=== PATIENT | male | born 1930 | race Caucasian/White ===

== ENCOUNTER → 2016-08-07 | Outpatient (CLI) | payer OTHER ==
[~2016-08-07] MED LIST: IOPAMIDOL (ISOVUE-300) 100 ML BTL IV ONE
--- NOTE | 2016-08-07 18:46 | CT ---
CT Scan of the Abdomen and Pelvis (With Contrast) Indication: Low pelvic pain. History of partial colectomy for obstruction. History of appendectomy. Comparison: March 2016 Technique: 85 mL of Isovue 300 were given intravenously by machine power injection. Oral contrast wa s administered. Multidetector helical CT imaging was performed from the diaphragm to the symphysis pu bis. Dose reduction techniques were utilized. Findings: Abdomen: The lung bases demonstrate minimal scarring. Large hiatal hernia is present with the majorit y of the stomach involved as seen previously. No focal liver lesion is identified. Patient is status post cholecystectomy. A few calcifications are seen in the body of the pancreas which are probably va sculature could be from prior chronic pancreatitis. Spleen is unremarkable. Both adrenal glands are n ormal in size and appearance. Both kidneys enhance normally without evidence for mass or hydronephros is. There is evidence of vascular disease in the abdominal aorta without evidence significant aneurys mal dilatation and with a stable appearance. No significant abdominal lymphadenopathy. Pelvis: Diverticulosis is seen in sigmoid colon. There is prominent stool in the colon. No evidence f or inflammatory change to indicate diverticulitis. No evidence for small bowel obstruction. No signif icant free fluid in the pelvis. Radiation seeds are seen in the prostate. No evidence for bladder alexia culus. Multilevel degenerative changes seen in the lumbar spine stable in appearance. Slight mild ant erior wedge compression deformities are seen of L2 and L4 vertebral bodies which are stable. Impression: 1. Diverticulosis without evidence for diverticulitis. Constipation. 2. Large hiatal hernia involving majority of the stomach stable in appearance. 3. Other chronic findings as above which are stable.
== END ==
LOC: FIMAGING 14:12
PROVIDERS: ATTEND Physician Assistant Medical
DX: K57.30 Diverticulosis of large intestine without perforation or abscess without bleeding (principal); K44.9 Diaphragmatic hernia without obstruction or gangrene; Z90.49 Acquired absence of other specified parts of digestive tract
CPT/HCPCS: 74177; Q9967

== ENCOUNTER → 2016-12-09 | Outpatient (CLI) | payer OTHER | LOC: FIMAGING 11:58 | PROVIDERS: ATTEND Internal Medicine Pulmonary Disease | DX: J44.9 Chronic obstructive pulmonary disease, unspecified (principal); K44.9 Diaphragmatic hernia without obstruction or gangrene ==

== ENCOUNTER 2017-01-27 12:03 | Observation (INO) | payer OTHER ==
--- NOTE | 2017-01-27 12:23 | CPEKG ---
Heart Rate: 96 RR Interval: 625 P-R Interval: 144 QRSD Interval: 84 QT Interval: 356 QTC Interval: 450 P [place]: 24 QRS [place]: 13 T Wave [place]: 55 EKG Severity - OTHERWISE NORMAL ECG - EKG Impression: SINUS RHYTHM EKG Impression: VENTRICULAR PREMATURE COMPLEX Electronically Signed By: Russ Tapia 27-Jan-2017 12:55:22
[2017-01-27 12:41] LABS: % IMMATURE GRANULYOCYTES 0.7 % (0.0-1.1); ABSOLUTE IMMATURE GRANULOCYTES 0.06 10^3/uL (0.00-0.10); ADD DIFF? NO; ADD MORPH? NO; ADD SCAN? NO; ATYPICAL LYMPHOCYTE FLAG 0 (0-99); FRAGMENT RBC FLAG 0 (0-99); HEMATOCRIT 51.9 % (40.0-51.0); LEFT SHIFT FLG 0 (0-99); LIPEMIA HEMOLYSIS FLAG 80 (0-99); MEAN CELL HEMOGLOBIN CONCENTR. 32.8 g/dL (32.4-36.7); MEAN CELL VOLUME 94.5 fL (81.5-99.8); PLATELET CLUMPS FLAG 0 (0-99); PLATELET COUNT 136 10^3/uL (150-400); RED BLOOD CELL COUNT 5.49 10^6/uL (4.40-6.38); RED CELL DISTRIBUTION WIDTH 14.4 % (11.5-15.2)
[2017-01-27] MEDS ORDERED: NS 1,000 ML IV ONE (12:50)
[2017-01-27 12:53] LABS: ANION GAP 13 mEq/L (8-16); CALCIUM 10.1 mg/dL (8.5-10.4); CARBON DIOXIDE 24 mEq/l (22-31); CHLORIDE 102 mEq/L (97-110); CREATININE 1.1 mg/dL (0.7-1.3); GLOMERULAR FILTRATION RATE > 60; GLUCOSE 81 mg/dL (70-100); POTASSIUM 4.2 mEq/L (3.5-5.2); SODIUM 139 mEq/L (134-144)
--- NOTE | 2017-01-27 12:54 | EDPHY ---
H & P Stated Complaint: exertional dyspnea/cp x 1 month has seen cardiology and configuration management advisor Time Seen by Provider: 01/27/17 12:40 HPI/ROS: CHIEF COMPLAINT: Dyspnea on exertion and presyncope HISTORY OF PRESENT ILLNESS: The patient is an 86-year-old man with a history of COPD and coronary artery disease with 2 stents who comes to the emergency department complaining of dyspnea on exertion. He has had the symptoms for the last 2 years but have worsened over the last 2 months. He states that he can hardly take a few steps up the stairs without becoming shortness of breath and having tightness in his upper chest. He is not diaphoretic. He is not nauseous. He followed up with his electronic warfare linguist Dr. Rodrigues who told him his tests were normal . He also followed up with his configuration management advisor Dr. Cristian Zimmerman who told him he did not find anything wrong. He feels great at rest. He has not had any swelling. Today he stood up from lying in the dental chair for an hour and felt lightheaded and presyncopal. He had to kneel down in the driveway. This concerned him enough to come to the emergency department. REVIEW OF SYSTEMS: Constitutional: denies: chills, fever, recent illness, recent injury EENTM: denies: blurred vision, double vision, nose congestion Respiratory: See HPI Cardiac: See HPI Gastrointestinal/Abdominal: denies: abdominal pain, diarrhea, nausea, vomiting, blood streaked stools Genitourinary: denies: dysuria, frequency, hematuria, pain Musculoskeletal: denies: joint pain, muscle pain Skin: denies: lesions, rash, jaundice, bruising Neurological: denies: headache, numbness, paresthesia, tingling, dizziness, weakness Hematologic/Lymphatic: denies: blood clots, easy bleeding, easy bruising Immunologic/allergic: denies: HIV/AIDS, transplant EXAM: GENERAL: Well-appearing, well-nourished and in no acute distress. HEAD: Atraumatic, normocephalic. EYES: Pupils equal round and reactive to light, extraocular movements intact, sclera anicteric, conjunctiva are normal. ENT: TMs normal, nares patent, oropharynx clear without exudates. Moist mucous membranes. NECK: Normal range of motion, supple without lymphadenopathy or JVD. LUNGS: Breath sounds clear to auscultation bilaterally and equal. No wheezes rales or rhonchi. HEART: Regular rate and rhythm without murmurs, rubs or gallops. ABDOMEN: Soft, nontender, normoactive bowel sounds. No guarding, no rebound. No masses appreciated. BACK: No CVA tenderness, no spinal tenderness, step-offs or deformities EXTREMITIES: Normal range of motion, no pitting or edema. No clubbing or cyanosis. NEUROLOGICAL: Cranial nerves II through XII grossly intact. Normal speech, normal gait. 5/5 strength, normal movement in all extremities, normal sensation PSYCH: Normal mood, normal affect. SKIN: Warm, dry, normal turgor, no visible rashes or lesions. Source: Patient Exam Limitations: No limitations - Personal History Current Tetanus/Diphtheria Vaccine: Unsure Tetanus Vaccine Date: within 10 years - Medical/Surgical History Hx Asthma: No Hx Chronic Respiratory Disease: Yes Hx Diabetes: No Hx Cardiac Disease: Yes Hx Renal Disease: No Hx Cirrhosis: No Hx Alcoholism: No Hx HIV/AIDS: No Hx Splenectomy or Spleen Trauma: No Other PMH: COPD, cardiac stent x 2, prostate CA, - Family History Significant Family History: No pertinent family hx - Social History Smoking Status: Former smoker Alcohol Use: Sober Drug Use: None Constitutional: Initial Vital Signs Temperature (C) 36.7 C 01/27/17 12:10 Heart Rate 94 01/27/17 12:10 Respiratory Rate 22 H 01/27/17 12:10 Blood Pressure 151/104 H 01/27/17 12:10 O2 Sat (%) 96 01/27/17 12:10 O2 Delivery Mode Room Air Allergies/Adverse Reactions: hydrocodone bitartrate [From Vicodin] Allergy (Mild, Verified 01/27/17 12:09) Vomiting Home Medications: Medication Instructions Recorded ALPRAZolam [Xanax 0.25 MG (*)] 0.25 mg PO DAILY 11/18/11 Atorvastatin Calcium [Lipitor 10 10 mg PO HS 11/18/11 mg (*)] Sodium Cl Nasal Gel [[place] Saline 1 carlos TP DAILY PRN 11/18/11 Nasal Gel] Doxazosin Mesylate 2 mg PO HS 12/14/11 Fluticasone Hfa 110 Mcg [Flovent 2 puffs IH BID 12/15/11 110 MCG Hfa MDI (*)] Levalbuterol Inhaler [Xopenex Hfa 2 puffs IH QID PRN 12/15/11 Inhaler (*)] Polyethylene Glycol 3350 [Miralax 17 gm PO DAILY PRN 08/06/12 17 gm (*)] Citalopram [celeXA 20 MG (RX)] 40 mg PO DAILY 11/16/12 Denosumab [Prolia] 60 mg SQ .[id number] 03/21/15 Pantoprazole Sodium [Protonix 40mg 40 mg PO DAILY 03/21/15 (*)] Mesalamine [[place] Suppository (*)] 1,000 mg KS DAILY PRN 03/16/16 predniSONE [Prednisone] 10 mg PO DAILY #30 tablet 03/18/16 ALPRAZolam [Xanax 0.25 MG (*)] 0.5 mg PO HS 01/27/17 Aspirin [Aspirin 81mg (*)] 81 mg PO DAILY 01/27/17 Calcium Carbonate/Vitamin D3 1 each PO DAILY 01/27/17 [CALCIUM 600 + VIT D TABLET] Medical Decision Making - Diagnostics EKG Interpretation: An EKG obtained and was read and documented in trace view. Please see trace view for full reading and report. Sinus rhythm, no acute ischemic changes, Imaging Results: Imaging Impressions Chest X-Ray 01/27/17 12:50 Impression: 1. Stable COPD/emphysema with no acute findings 2. Large hiatal hernia. 3. Additional findings as above. Chest/Thorax CTA 01/27/17 13:45 Impression: 1. No visible pulmonary embolus. 2. Stable large hiatal hernia 3. Coronary artery atherosclerosis. 4. Additional findings as above. Findings discussed with CONSUELO TAPIA 01/27/2017 at 14:45. ED Course/Re-evaluation: 3:40 p.m. I discussed the case with Dr. Pope who will admit to telemetry. Patient is currently symptom free. Differential Diagnosis: Partial list of the Differential diagnosis considered include but were not limited to; acute coronary disease, arrhythmia, COPD and although unlikely based on the history and physical exam, I also considered PE, pneumonia, pneumothorax. Critical Care Time: Critical care time spent by me, Dr. Tapia exclusive with this patient was 35 minutes, exclusive of the PA time exclusive of procedures. The organ system that was at risk was cardiovascular and I gave workup and admission to prevent worsening of the patient's condition - Data Points Laboratory Results: Laboratory Results 01/27/17 12:24 01/27/17 12:24 01/27/17 01/27/17 01/27/17 12:24 12:24 12:12 WBC 8.50 10^3/uL 10^3/uL (3.80-9.50) RBC 5.49 10^6/uL 10^6/uL (4.40-6.38) Hgb 17.0 g/dL g/dL (13.7-17.5) Hct 51.9 % H % (40.0-51.0) MCV 94.5 fL fL (81.5-99.8) MCH 31.0 pg pg (27.9-34.1) MCHC 32.8 g/dL g/dL (32.4-36.7) RDW 14.4 % % (11.5-15.2) Plt Count 136 10^3/uL L 10^3/uL (150-400) MPV 10.0 fL fL (8.7-11.7) Neut % (Auto) 60.8 % % (39.3-74.2) Lymph % (Auto) 26.4 % % (15.0-45.0) Gordon % (Auto) 10.9 % % (4.5-13.0) Eos % (Auto) 0.7 % % (0.6-7.6) Baso % (Auto) 0.5 % % (0.3-1.7) Nucleat RBC Rel Count 0.0 % % (0.0-0.2) Absolute Neuts (auto) 5.17 10^3/uL 10^3/uL (1.70-6.50) Absolute Lymphs (auto) 2.24 10^3/uL 10^3/uL (1.00-3.00) Absolute Monos (auto) 0.93 10^3/uL H 10^3/uL (0.30-0.80) Absolute Eos (auto) 0.06 10^3/uL 10^3/uL (0.03-0.40) Absolute Basos (auto) 0.04 10^3/uL 10^3/uL (0.02-0.10) Absolute Nucleated RBC 0.00 10^3/uL 10^3/uL (0-0.01) Immature Gran % 0.7 % % (0.0-1.1) Immature Gran # 0.06 10^3/uL 10^3/uL (0.00-0.10) D-Dimer 1.15 ug/mLFEU H ug/mLFEU (0.00-0.50) Sodium 139 mEq/L mEq/L (134-144) Potassium 4.2 mEq/L mEq/L (3.5-5.2) Chloride 102 mEq/L mEq/L (97-110) Carbon Dioxide 24 mEq/l mEq/l (22-31) Anion Gap 13 mEq/L mEq/L (8-16) BUN 17 mg/dL mg/dL (7-23) Creatinine 1.1 mg/dL mg/dL (0.7-1.3) Estimated GFR > 60 Glucose 81 mg/dL mg/dL (70-100) Calcium 10.1 mg/dL mg/dL (8.5-10.4) Troponin I < 0.012 ng/mL ng/mL (0-0.034) Medications Given: Discontinued Medications Sodium Chloride (Ns) 1,000 mls @ 0 mls/hr IV ONCE ONE; Wide Open PRN Reason: Protocol Stop: 01/27/17 12:51 Last Admin: 01/27/17 13:04 Dose: 1,000 mls Departure - Departure Disposition: [facility] Inpatient Acute Clinical Impression: Chest pain Qualifiers: Chest pain type: unspecified Qualified Code(s): R07.9 - Chest pain, unspecified Condition: Fair
[2017-01-27 13:05] LABS: TROPONIN I < 0.012 ng/mL (0-0.034)
[2017-01-27] MEDS ORDERED: CALCIUM CARBONATE 500 MG CHEWABLE TAB PO PRN (13:46)
[2017-01-27] MEDS ORDERED: IOPAMIDOL (ISOVUE 370) 100 ML BTL IV ONE (13:49)
[2017-01-27] MEDS ORDERED: ONDANSETRON DISINTEGRATING 4 MG TAB PO PRN (16:36)
[2017-01-27] MEDS ORDERED: ACETAMINOPHEN 325 MG TAB PO PRN (16:36)
[2017-01-27] MEDS ORDERED: ONDANSETRON 4 MG/2 ML VIAL IVP PRN (16:36)
[2017-01-27] MEDS ORDERED: POLYETHYLENE GLYCOL 3350 17 GM PKT PO PRN (16:41)
[2017-01-27] MEDS ORDERED: SODIUM CL NASAL GEL 14.1 GM TUBE TP PRN (16:41)
[2017-01-27] MEDS ORDERED: MESALAMINE 1,000 MG SUPP PR PRN (16:41)
[2017-01-27] MEDS ORDERED: LEVALBUTEROL INHALER 200 PUFFS/15 GM MDI IH PRN (16:41)
--- NOTE | 2017-01-27 17:37 | GHP ---
[f rep st] HISTORY AND PHYSICAL DATE OF ADMISSION: 01/27/2017 HISTORY: The patient is a pleasant 86-year-old gentleman with a history of coronary disease and col itis who presents with exertional dyspnea. He had exertional dyspnea for a couple of years, it has gotten acutely worse over the last 2 months. He has also had some lightheadedness with standing. Otilia lovett does not take any blood pressure medications, agents. Today he was at the dentist, and afterwards, he had a near syncopal event and has sought care. He has had what sounds like his previous anginal equivalent that occurred in the setting of an VT wi th bilateral elbow or inner biceps pain and he has had none of that. He has not had heart failure s ymptoms such as PND, orthopnea, or lower extremity edema. He has been eating and drinking well with out nausea, vomiting or diarrhea. No fevers, chills. REVIEW OF SYSTEMS: Complete 10-point review of systems conducted, negative except as noted in the H PI. PAST MEDICAL HISTORY: 1. Colitis. 2. Coronary artery disease. 3. Asthma. 4. BPH. ALLERGIES: Hydrocodone. HOME MEDICATIONS: Prolia, alprazolam, aspirin, atorvastatin, calcium carbonate, citalopram, doxazos in, fluticasone, levalbuterol, mesalamine, pantoprazole, MiraLAX, prednisone. Saline nasal gel. SOCIAL HISTORY: He is retired from [employer]. Quit drinking in 1972, quit [employer] in 1979. Lives with his . Does not fall. FAMILY HISTORY: Parents . PHYSICAL EXAM: VITAL SIGNS: Afebrile at 36.7, blood pressure 151/104, pulse 94, breathing 20 times a minute, 96% on room air. GENERAL: No acute distress. HEENT: Sclerae anicteric. Oropharynx tacho ar. Mucous membranes are moist. NECK: Supple without lymphadenopathy or JVD. LUNGS: Clear to au scultation bilaterally. HEART: S1, S2. ABDOMEN: Soft, nontender, nondistended. LOWER EXTREMITIE S: No edema. Calves nontender. SKIN: Without rash. NEUROLOGIC: Nonfocal. LABORATORY DATA: Sodium 139, potassium 4.2, chloride 102, bicarb 24, BUN 17, creatinine 1.1, glucos e 81. Troponin less than 0.012. D-dimer is elevated at 1.15. White count 8, hematocrit 52, platele ts are 136,000. CTA of the chest shows clear pulmonary parenchyma with no evidence of pulmonary embolism. Also note d to have coronary atherosclerosis. Chest x-ray, interpreted by me, shows no acute cardiopulmonary disease. EKG, interpreted by me, shows sinus at 96 with normal axis and intervals. There is no ST or T-wave changes. I have discussed the case with Dr. Russ Tapia. ASSESSMENT/PLAN: An 86-year-old gentleman presents with exertional dyspnea. 1. Dyspnea. Concerning for possible anginal equivalent. I do acknowledge his previous anginal equ ivalent is different. I have ordered a stress test for tomorrow. Troponin is negative. We will re peat it again tonight. I will appraise Cardiology of his presentation tomorrow following telemetry. 2. Dizziness with standing. The patient appears clinically euvolemic. I will check orthostatic vi deon signs and follow him on telemetry for possible bradycardic episodes. 3. Colitis. Continue his medications. 4. Thrombocytopenia, mild. Follow. DISPOSITION: Observation status. CODE STATUS: Full code. /[id number]/MODL
[2017-01-27] MEDS ORDERED: ALPRAZolam 0.25 MG TAB PO SCH (21:00)
[2017-01-27] MEDS ORDERED: DOXAZOSIN MESYLATE 4 MG TAB PO SCH (21:00)
[2017-01-27] MEDS ORDERED: ATORVASTATIN CALCIUM 10 MG TAB PO SCH (21:00)
[2017-01-27] MEDS: FLUTICASONE HFA 110 MCG MDI IH SCH (22:01)
[2017-01-28 07:58] VITALS: RESP 16
[2017-01-28] MEDS ORDERED: ALPRAZolam 0.25 MG TAB PO SCH (09:00)
[2017-01-28] MEDS ORDERED: ENOXAPARIN 40 MG/0.4 ML SYR SC SCH (09:00)
[2017-01-28] MEDS ORDERED: ASPIRIN 81 MG CHEWABLE TAB PO SCH (09:00)
[2017-01-28] MEDS ORDERED: CITALOPRAM 20 MG TAB PO SCH (09:00)
[2017-01-28] MEDS ORDERED: predniSONE 10 MG TAB PO SCH (09:00)
[2017-01-28] MEDS ORDERED: PANTOPRAZOLE SODIUM 40 MG TAB PO SCH (09:00)
[2017-01-28] MEDS ORDERED: CALCIUM CARB W/VIT D 500 MG TAB PO SCH (09:00)
[2017-01-28] MEDS: FLUTICASONE HFA 110 MCG MDI IH SCH (09:43)
[2017-01-28] MEDS ORDERED: REGADENOSON 0.4 MG/5 ML SYR IVP ONE (10:28)
[2017-01-28 11:33] VITALS: BP 143/82; PULSE 88; TEMP 96.7; O2SAT 93
--- NOTE | 2017-01-28 13:50 | HOSPPROG ---
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 stress neg Objective: Vital Signs Temp Pulse Resp BP Pulse Ox 35.9 C L 88 16 143/82 H 93 01/28/17 11:22 01/28/17 11:22 01/28/17 11:22 01/28/17 11:22 01/28/17 11:22 01/27/17 01/28/17 01/29/17 05:59 05:59 05:59 Intake Total 1300 Output Total 1250 Balance 50 - Physical Exam Constitutional: no apparent distress, appears nourished Eyes: PERRL, anicteric sclera Ears, Nose, Mouth, Throat: moist mucous membranes, hearing normal Cardiovascular: regular rate and rhythym, no murmur, rub, or gallop, No systolic murmur Respiratory: no respiratory distress, no rales or rhonchi Gastrointestinal: normoactive bowel sounds, soft, non-tender abdomen Genitourinary: no bladder fullness, No edward in urethra Skin: warm, normal color Musculoskeletal: full muscle strength Neurologic: AAOx3, sensation intact bilaterally Psychiatric: interacting appropriately ICD10 Worksheet Patient Problems: Problems Problem Status Onset Chest pain Acute CAD - Coronary arteriosclerosis Active Chronic obstructive lung disease Active Dyspnea on exertion Active COPD exacerbation Acute Chronic Disease Mgmt/Transitional Care Acute
--- NOTE | 2017-01-28 14:01 | CPR ---
[f rep st] NONINVASIVE CARDIAC PROCEDURE REPORT PROCEDURE: Nuclear Lexiscan stress test. ORDERING PHYSICIAN: Moe Pope MD REASON FOR TEST: Chest pain. SUMMARY: Resting EKG shows a regular sinus rhythm with occasional PAC. Resting blood pressure 135/89, oxygen saturation 98%, heart rate 90. LEXISCAN PORTION: Lexiscan was injected at 10:34:10, followed by saline flush. Cardiolite was then injected, followed by saline flush per protocol. Blood pressure 141/91, oxygen saturation 97%, heart rate 98%. He had no symptoms with the infusion, EKG remained stable. RECOVERY: He spontaneously recovered. Recovery blood pressure 155/92, oxygen saturation 95%, heart rate 96. He remained asymptomatic. There were no EKG changes. At this time, he is stable for nuclear imaging. /[id number]/MODL MTDD
--- NOTE | 2017-01-28 14:47 | GDS ---
[f rep st] DISCHARGE SUMMARY DISCHARGE DIAGNOSES: 1. Dyspnea on exertion. 2. Possible syncopal episode. 3. Coronary artery disease. 4. Possible orthostasis. Please see admission history and physical by Dr. Jake Hodges. The patient presented with dyspnea on exertion. It has been getting worse over 2 years and maybe acutely worse in the last 2 months. The patient does not have PND, orthopnea, or lower extremity edema. He does not have known heart f ailure. He does not take diuretics and does not have lower extremity edema. He does not have his c lassic anginal symptoms of bilateral inferior elbow pain. He had negative troponins, nonischemic EK G, no events on telemetry, negative CT PE study without parenchymal infiltrates. We discussed further evaluation, both he and I, as well as Dr. Jameel Rodrigues, his weld fitter, about the possibility of angiogram for further evaluation, and the patient declined and wishes to go home . I did prescribe him an inhaler given his emphysema. /[id number]/MODL
== END 2017-01-28 14:30 | disposition home or self-care (01) ==
LOC: F2W 17:27
PROVIDERS: ADMIT Internal Medicine; ATTEND Internal Medicine
DX: R06.09 Other forms of dyspnea (principal); I25.10 Atherosclerotic heart disease of native coronary artery without angina pectoris; J43.9 Emphysema, unspecified; K44.9 Diaphragmatic hernia without obstruction or gangrene; K52.9 Noninfective gastroenteritis and colitis, unspecified; Z95.5 Presence of coronary angioplasty implant and graft; Z85.46 Personal history of malignant neoplasm of prostate; Z87.891 Personal history of nicotine dependence
CPT/HCPCS: 71020; 71275; 78452; 93005; 96360; 99291; A9500; G0378; J1650; J2785; Q9967

== ENCOUNTER → 2017-05-05 | Outpatient (CLI) | payer OTHER | LOC: FIMAGING 12:37 | PROVIDERS: ATTEND Internal Medicine Pulmonary Disease | DX: J44.9 Chronic obstructive pulmonary disease, unspecified (principal) ==

== ENCOUNTER → 2017-10-27 | Outpatient (CLI) | payer OTHER | LOC: GIMAGING 15:50 | PROVIDERS: ATTEND Family Medicine | DX: M25.751 Osteophyte, right hip (principal); I70.8 Atherosclerosis of other arteries; Z85.46 Personal history of malignant neoplasm of prostate | CPT/HCPCS: 72170-PO ==

== ENCOUNTER 2018-10-27 19:07 | Observation (INO) | payer OTHER | END 2018-10-28 15:38 | disposition home or self-care (01) | LOC: F1N 22:33 ==

== ENCOUNTER → 2018-12-06 | Outpatient (CLI) | payer OTHER | LOC: GIMAGING 16:12 ==